=== PATIENT | female | born 1995 | race Caucasian/White ===

== ENCOUNTER 2023-07-16 07:45 | Outpatient (CLI) | payer OTHER ==
--- NOTE | 2023-07-16 13:39 | MRI Report ---
PROCEDURE: MRI brain without contrast INDICATIONS: 28-year-old female with migraine headaches TECHNIQUE: Multiplanar multisequential MR images of the brain were obtained without contrast COMPARISON: None FINDINGS: CSF Spaces: Basal cisterns are patent. No extra-axial fluid collections. Ventricles are normal in size and shape. Brain: No intracranial masses or hemorrhage. Smith/white matter interface is normal. Brainstem appe ars normal. Diffusion-weighted images shows no evidence of acute infarct. Normal intravascular flow voids are present. Skull and face: Calvarium has normal marrow signal. Orbits appear normal. Sinuses: Sinuses and mastoids are clear. IMPRESSION: Unremarkable MRI of the brain Reviewed by: Michael Edmonds MD on 07/16/2023 12:38 PM HUSSAIN Approved by: Michael Edmonds MD on 07/16/2023 12:38 PM [facility] Station ID: [id number]
== END 2023-07-16 07:46 | disposition home or self-care (01) ==
LOC: DI 07:45
PROVIDERS: ATTEND Student in an Organized Health Care Education/Training Program
DX: G43.909 Migraine, unspecified, not intractable, without status migrainosus (principal)